=== PATIENT | male | born 1975 | race African-American/Black ===

== ENCOUNTER 2024-11-09 09:59 | Emergency (ER) | payer SELFPAY ==
[2024-11-09 10:00] VITALS: BP 139/90; PULSE 103; RESP 14; TEMP 36.1; O2SAT 99; BMI 32.8
--- NOTE | 2024-11-09 10:20 | EX.ED.VIS.PS ---
HPI HPI - Psych History of Present Illness Chief Complaint: Suicidal Informant: patient Narrative Narrative: Presents from nursing home reporting increasing suicidal ideation with voices in the head. History of schizoaffective disorder. Patient reports he was just discharged from psychiatric hospital in [place] 4 days ago he was hospitalized for 2 weeks. Review of his discharge papers admission 21 October discharge November 05. He was admitted for voices. States voices have not improved. He coordinated with a friend. Got a [employer] past he came here 2 days ago. He saw his friend he is currently at the nursing home. He states thoughts of hurting self by overdose. He is a diabetic. He is on insulin and metformin also notes psychiatric medicine. He reports no current alcohol use or any recreational drugs. Denies homicidal ideations. States the voices tells him to just do it. Clarification with patient was to hurt himself. He reports nontraumatic headache since yesterday.. no nausea or vomiting. Denies photophobia or phonophobia. Prior similar symptoms: Yes PFSH PFSH Medical History (Updated 11/09/24 @ 17:[address] Howard Lopez DO) Schizophrenia 23-polyvalent pneumococcal polysaccharide vaccine indication of diabetes in patient 6 to 64 years of age Home Medications ?Medication ?Instructions ?Recorded ?Last Taken ?Type insulin glargine 100 unit/mL (3 5 unit subcut DAILY 11/09/24 11/09/24 History mL) subcutaneous pen (Lantus Solostar U-100 Insulin) insulin glargine 100 unit/mL (3 14 unit subcut QHS 11/09/24 11/08/24 History mL) subcutaneous pen (Lantus Solostar U-100 Insulin) lumateperone 42 mg capsule 42 mg PO DAILY 11/09/24 11/08/24 History (Caplyta) metformin 1,000 mg tablet 1,000 mg PO BID 11/09/24 11/09/24 History Allergy/AdvReac Type Severity Reaction Status Date / Time Pork/Porcine Containing AdvReac Nausea/Vom/ Verified 11/09/24 10:01 Products Diarrhea Social History Smoking Status: Current every day smoker tobacco type: cigarettes ROS ROS ED Constitutional Constitutional ED: Denies chills, fever(s) or sweats ENT ENT ED: Denies sore throat Cardiovascular Cardiovascular: Denies chest pain, leg edema, palpitations or racing heartbeat Respiratory/Chest Respiratory/Chest: Denies cough, dyspnea or dyspnea on exertion Gastrointestinal Gastrointestinal: Denies abdominal pain, diarrhea, nausea or vomiting Genitourinary Genitourinary ED: Denies dysuria, hematuria or urinary frequency Musculoskeletal Musculoskeletal: Denies back pain, extremity pain or neck pain Integumentary Denies rash or wounds Neurologic Neurologic: Reports headache(s); Denies paresthesias or weakness Psychiatric Psychiatric: Reports suicidal ideation, suicidal thoughts and other Details: Auditory hallucinations. EXAM Physical Exam Const Vital Signs: 11/09/24 10:00 Temperature 97 F L Temperature Source Temporal Pulse Rate 103 H Respiratory Rate 14 Blood Pressure 139/90 H Blood Pressure Mean 106 Pulse Ox 99 Oxygen Delivery Method Room Air Positive well nourished and well developed General Appearance ED: well developed and NAD HEENT Reports moist mucous membranes normocephalic and atraumatic Eyes General Eye ED: Yes normal appearance of both eyes Neck full ROM Neck Narrative: No meningismus Chest Wall Chest: Negative for tenderness Resp normal respiratory effort and normal air movement Effort and Inspection: symmetric chest movement; Negative for respiratory distress Cardio regular rate, regular rhythm and no murmurs Peripheral Pulses: pulses 2+ throughout GI normal to inspection, nondistended, normoactive bowel sounds and non-tender Palpation: Negative for guarding or rebound tenderness present Extremity normal to inspection General Extremety ED: Negative for edema or tenderness General Extremity: Negative for edema Neuro oriented x3, CN's II-XII intact bilaterally and no sensory deficits noted Sensorium / Orientation: awake and alert Psych Psych Narrative: Flat affect, admits to suicidal ideation. Admits to auditory hallucinations. Skin no rashes or lesions noted and no wounds MDM MDM MDM Narrative Medical decision making narrative: Interventions / MDM: Differential diagnosis: Schizoaffective disorder, suicidal ideation, auditory hallucinations, headache, diabetes Diagnosis considered but do not suspect: No clinical meningitis.Diabetic ketoacidosis however normal anion gap. My EKG interpretation: N/A Imaging independently reviewed and interpreted by myself: N/A External documents reviewed: N/A Test considered but not ordered:N/A ED course: Primary complaint is increasing auditory loose nations with suicidal thoughts. History of schizoaffective disorder. Will obtain medical clearance labs. Tylenol ordered for his headache. I discussed with licensed reactor operator with patient being out of state. They will evaluate the patient. 1145: Alcohol negative toxicology presumptive THC. Labs hyperglycemia glucose 403 normal gap therefore no concerns for DKA. He took his metformin today on his paperwork he is on Lantus in the morning at night. He was previously on sliding scale from facility. Will plan on 8 units of short acting insulin, meal tray is coming. Will dose prior to his meal tray. Medically cleared. Will await crisis evaluation to help with disposition. 1250: Crisis did evaluate the patient is agreed he will likely require hospitalization. Currently patient unable to provide his so security number. We will reach out to [facility] in [place] to try to obtain additional information on the patient. 1730: Patient glucose rechecked after insulin and eating meal currently 303. Awaiting placement by crisis. Re-evaluation: stable Disposition discussed with patient/family/significant other: Case discussed with consulting clinician: shore worker, wiley This note was generated with Wiper dictation software. It may contain incorrect words, spelling, and punctuation that were not noted in checking the note before signing. Lab Data Attestation: I reviewed the patient's lab results. Labs: Laboratory Results - last 24 hr 11/09/24 10:36 WBC 7.5 RBC 4.57 L Hgb 12.1 L Hct 37.3 L MCV 81.6 MCH 26.5 L MCHC 32.4 RDW Std Deviation 41.4 RDW Coeff of Richard 14.2 Plt Count 357 MPV 8.9 Immature Gran % (Auto) 0.300 Neut % (Auto) 62.5 Lymph % (Auto) 29.4 [place] % (Auto) 6.4 Eos % (Auto) 1.1 Baso % (Auto) 0.3 Absolute Neuts (auto) 4.7 Absolute Lymphs (auto) 2.20 Nucleated RBC % 0 Sodium 136 Potassium 3.7 Chloride 101 Carbon Dioxide 21.2 Anion Gap 14 BUN 9 Creatinine 1.18 Estim Creat Clear Calc 95.93 Est GFR (MDRD) Non-Af 75 BUN/Creatinine Ratio 7.7 L Glucose 403 H Calcium 9.3 Urine Opiates Screen NEGATIVE U Buprenorphine Qual NEGATIVE Ur Oxycodone Screen NEGATIVE Urine Methadone Screen NEGATIVE Urine Fentanyl Screen NEGATIVE Ur Barbiturates Screen NEGATIVE Ur Phencyclidine Scrn NEGATIVE Ur Amphetamines Screen NEGATIVE U Benzodiazepines Scrn NEGATIVE Urine Cocaine Screen NEGATIVE U Cannabinoids Screen PRESUMPTIVE POSITIVE Ethyl Alcohol < 10.1 Discharge Plan Triage Chief Complaint: Suicidal Other Complaint: Headache ED Provider: Howard Lopez Dx/Rx/DC Orders Clinical Impression: Suicidal ideation, Schizoaffective disorder, Hyperglycemia due to diabetes mellitus Prescriptions: No Action insulin glargine [Lantus Solostar U-100 Insulin] 100 unit/mL (3 mL) insulin pen 5 unit subcut DAILY Rx Instructions: 5U IN THE MORNING AND 14U HS insulin glargine [Lantus Solostar U-100 Insulin] 100 unit/mL (3 mL) insulin pen 14 unit subcut QHS Rx Instructions: 5U AM AND 14U HS metformin 1,000 mg tablet 1,000 mg PO BID Caplyta 42 mg capsule 42 mg PO DAILY Primary Care Provider: Care Physician,No Primary Referrals: Care Physician,No Primary [Primary Care Provider] - Print Language: Mozambican Disposition Disposition: Psychiatric Hospital or Unit
[2024-11-09] MEDS: Acetaminophen 325 MG Tablet 650 MG PO (10:27)
[2024-11-09 10:52] LABS: Absolute Neutrophil Count 4.7 X10^3/uL (2.0-7.7); Basophil# 0.02 X10^3/uL; Basophil% 0.3 % (0-1); Eosinophil# 0.08 X10^3/uL; Eosinophils% 1.1 % (0-5); Hematocrit 37.3 % (40-54); Hemoglobin 12.1 g/dL (13.0-16.5); Lymphocyte % 29.4 % (19-41); Mean Corp Hgb Conc 32.4 g/dL (32-36); Mean Corpuscular Hgb 26.5 pg (27.0-32.0); Mean Corpuscular Volume 81.6 fL (80-94); Mean Platelet Vol. 8.9 fl (6.2-12.0); Monocyte# 0.48 X10^3/uL; Monocyte% 6.4 % (0-10); NRBC Flagged by Analyzer 0 % (0-5); Neutrophil # 4.69 X10^3/uL (2.7-7.7); Neutrophil % 62.5 % (47-70); Platelet Count 357 K/mm3 (150-450); RBC Distribution Width CV 14.2 % (11.6-14.6); RBC Distribution Width SD 41.4 fl (35.1-43.9); Red Blood Count 4.57 M/mm3 (4.6-6.2); White Blood Count 7.5 K/mm3 (4.4-11.0)
[2024-11-09 11:21] LABS: Amphetamine Urine NEGATIVE (<1000 ng/mL); Barbiturate Urine NEGATIVE (< 200 ng/mL); Benzodiazepine Urine NEGATIVE (< 200 ng/mL); Buprenorphine Urine NEGATIVE (< 200 ng/mL); Cocaine Urine NEGATIVE (< 300 ng/mL); Fentanyl, Urine NEGATIVE; Methadone Urine NEGATIVE (< 300 ng/mL); Opiates Urine NEGATIVE (< 300 ng/mL); Oxycodone, Urine NEGATIVE (< 100 ng/mL); PCP Urine NEGATIVE (< 25 ng/mL); THC Urine PRESUMPTIVE POSITIVE (< 50 ng/mL)
--- NOTE | 2024-11-09 11:21 | CM.ED ---
Social Work SW called crisis to meet with patient as patient came to [place] from [place] 3 days ago. Patients insurance is out of state. Crisis updated that patient was recently released from an inpatient psychiatric facility in [place] and took a [employer] hound bus to [place]. Patient states he was supposed to stay with a friend but that got awkward so patient has been has been staying at [facility]. Patient reports to command auditory hallucinations and suicidal ideations. Neyda Perez, LIQUID SUGAR MELTER, SHADOWGRAPH SCALE OPERATOR
[2024-11-09 11:22] LABS: Anion Gap 14 (5-15); BUN 9 mg/dL (4-19); BUN/Creat Ratio 7.7 RATIO (10-20); Calcium,Total 9.3 mg/dL (7.6-11.0); Carbon Dioxide 21.2 mmol/L (21.0-32.0); Chloride 101 mmol/L (98-108); Creatinine, Serum 1.18 mg/dL (0.70-1.20); EST Glomerular Filtration Rate 75 (>60); Estimated Creatinine Clearance 95.93 ml/min (50-250); Glucose 403 mg/dL (70-99); Potassium 3.7 mmol/L (3.3-5.1); Sodium Level 136 mmol/L (133-145)
[2024-11-09 11:24] LABS: Alcohol, Blood (Medical)-Serum < 10.1 mg/dL (<=10.0)
[2024-11-09] MEDS: Insulin Lispro 100 UNIT/ML INSULN.PEN 8 UNIT SC (12:26)
[2024-11-09 17:49] LABS: Bedside Glucose 303 mg/dL (74-106)
[2024-11-09 18:29] VITALS: BP 145/65; PULSE 85; RESP 16; O2SAT 98
--- NOTE | 2024-11-09 19:15 | PCA ---
[facility] CALLED AND REQUESTED AN EKG FOR PT. RN NOTIFIED.
--- NOTE | 2024-11-09 19:16 | EKG12_ITS ---
Test Reason : [facility] [place] Pressure : */* mmHG Vent. Rate : 71 BPM Atrial Rate : 71 BPM P-R Int : 164 ms QRS Dur : 88 ms QT Int : 370 ms P-R-T Axes : 29 64 57 degrees QTcB Int : 402 ms Normal sinus rhythm Normal ECG Confirmed by Daniel Eddy ([id number]), script editor CAREN BALDERAS ([id number]) on 11/11/2024 6:56:35 AM Referred By: Confirmed By: Daniel Eddy
[2024-11-10 02:00] VITALS: BP 125/87; PULSE 69; RESP 15; O2SAT 99
[2024-11-10 08:47] LABS: Bedside Glucose 233 mg/dL (74-106)
[2024-11-10 10:29] VITALS: BP 132/82; PULSE 72; RESP 16; TEMP 36.5; O2SAT 97
--- NOTE | 2024-11-10 11:20 | CM.ED ---
Social Work SW contacted Crisis and spoke with Roger to ask about an update on patients placement. Roger stated that patient is still under review at [facility] but if Crisis did not hear from them soon they would call for an update. Neyda Perez, JUVENILE COURT LIAISON, PACKAGE MAKER
[2024-11-10 12:46] LABS: Bedside Glucose 317 mg/dL (74-106)
--- NOTE | 2024-11-10 14:28 | CM.ED ---
Social Work SW contacted crisis who stated the last update from [facility] was that patient was still under review and patient will likely not admit until at least tomorrow. Neyda Perez, BRAND COORDINATOR, WASTEWATER SUPERINTENDENT
[2024-11-10 15:44] LABS: Bedside Glucose 388 mg/dL (74-106)
[2024-11-10] MEDS: Insulin Lispro 100 UNIT/ML INSULN.PEN 10 UNIT SC (16:17)
[2024-11-10 18:00] VITALS: BP 143/89; PULSE 73; RESP 18; O2SAT 98
[2024-11-10] MEDS: Insulin Glargine-YFGN 100 UNIT/ML Pen 14 UNIT SC (21:11)
[2024-11-10] MEDS: Acetaminophen 325 MG Tablet 650 MG PO (21:11)
[2024-11-11 02:00] VITALS: BP 126/76; PULSE 63; RESP 16; TEMP 36.6; O2SAT 100
--- NOTE | 2024-11-11 07:31 | PCA ---
[facility] CALL[facility] @ 0730 AND [facility] ACCEPTED THE PATIENT. THEY WILL CALL WITH A BED UPDATE AND RECENT SET OF VITALS SOON.
[2024-11-11 09:20] VITALS: BP 120/78; PULSE 72; RESP 16; O2SAT 100
[2024-11-11 09:34] VITALS: BP 120/78; PULSE 72; RESP 16; TEMP 37; O2SAT 100
== END 2024-11-11 09:35 ==
PROVIDERS: Emergency Provider Emergency Medicine; Visit Provider Emergency Medicine
DX: F25.9 Schizoaffective disorder, unspecified (principal); E11.65 Type 2 diabetes mellitus with hyperglycemia; Z79.4 Long term (current) use of insulin; R45.851 Suicidal ideations; R51.9 Headache, unspecified; F17.210 Nicotine dependence, cigarettes, uncomplicated; Z79.84 Long term (current) use of oral hypoglycemic drugs; Z79.899 Other long term (current) drug therapy
CPT/HCPCS: 80048; 80307; 82077; 82962; 85025; 93005; 99285

== ENCOUNTER 2025-03-01 20:05 | Emergency (ER) | payer MEDICAID, SELFPAY ==
[2025-03-01 20:05] VITALS: BP 131/85; PULSE 81; RESP 16; TEMP 36.9; O2SAT 99; BMI 34.4
--- NOTE | 2025-03-01 20:45 | EX.ED.VIS.PS ---
HPI HPI - Psych History of Present Illness Chief Complaint: Suicidal Narrative Narrative: 50-year-old male past medical history of diabetes presents with increasing problems with depression and anxiety, as well as increased suicidal ideation. He relates history that he was seen at another hospital and received a shot of Vivitrol about 2 weeks ago. After about a week, he was discharged from the psychiatric facility. Since then, he has been having increasing thoughts of suicide. Additionally, he states that he has a plan on committing suicide, and the fact that he would take a bunch of pills. He states he is not currently on medication for depression and anxiety and does not see a psychiatrist or a counselor. He denies any abdominal pain, nausea or vomiting, or any other somatic symptoms. He states he told the friend that he wanted to commit suicide this evening who brought him to the emergency department. [facility] Medical History Schizophrenia 23-polyvalent pneumococcal polysaccharide vaccine indication of diabetes in patient 6 to 64 years of age Home Medications ?Medication ?Instructions ?Recorded ?Last Taken ?Type insulin glargine 100 unit/mL (3 5 unit subcut DAILY 11/09/24 11/09/24 History mL) subcutaneous pen (Lantus Solostar U-100 Insulin) insulin glargine 100 unit/mL (3 14 unit subcut QHS 11/09/24 11/08/24 History mL) subcutaneous pen (Lantus Solostar U-100 Insulin) lumateperone 42 mg capsule 42 mg PO DAILY 11/09/24 11/08/24 History (Caplyta) metformin 1,000 mg tablet 1,000 mg PO BID 11/09/24 11/09/24 History Allergy/AdvReac Type Severity Reaction Status Date / Time Pork/Porcine Containing AdvReac Nausea/Vom/ Verified 03/01/25 20:05 Products Diarrhea Social History Smoking Status: Heavy Smoker (>10/day) ROS ROS ED ROS Narrative Review of systems positive for suicidal ideation with plan to take pills. No fevers or chills, no nausea or vomiting, no other symptoms. EXAM Physical Exam Narrative Exam Narrative: Afebrile. Vital signs noted. Nontoxic-appearing. Cardiovascular examination feels regular rate and rhythm. Lungs are clear to auscultation bilaterally. The abdomen is soft and nontender with positive bowel sounds. Neurological examination nonfocal, nonlateralizing. Flat affect. 1 to a few word answers. Semiavoidant behavior. No internal stimulation or active hallucinations. Const Vital Signs: 03/01/25 20:05 03/01/25 21:07 Temperature 98.4 F Temperature Source Oral Pulse Rate 81 79 Respiratory Rate 16 16 Blood Pressure 131/85 H Blood Pressure Mean 100 Pulse Ox 99 98 Oxygen Delivery Method Room Air Room Air MDM MDM MDM Narrative Medical decision making narrative: I reviewed the patient's prior records. Last ED visit showed that he was here at the beginning of October a few months ago and was transferred to a psychiatric facility. He has past psychiatric history of schizophrenia. Medical clearance labs will be obtained for evaluation by the crisis counselor. I reviewed his laboratory work and he has normal white count of 8.1, hemoglobin 11.1, stable, platelet count normal at 333. CMP is significant for glucose of 179 with a normal anion gap of 10, normal BUN and creatinine, normal sodium and potassium. LFTs are grossly unremarkable. Ethyl alcohol is negative. His urine for drugs of abuse is still pending. Once this is returned, I do feel that he would be medically cleared. At this point in time, patient will be signed out to the oncoming physician, Dr. Mark Davila, to make final disposition on this patient after crisis counselor evaluation for suicidal ideation with plan to take pills. Patient is in stable condition. History & Record Review Discussion w/independent historian: Patient Additional record(s) reviewed:: Prior ED visit Lab Data Attestation: I reviewed the patient's lab results. Labs: Laboratory Results - last 24 hr 03/01/25 20:38 WBC 8.1 RBC 4.26 L Hgb 11.1 L Hct 34.1 L MCV 80.0 MCH 26.1 L MCHC 32.6 RDW Std Deviation 46.5 H RDW Coeff of Richard 16.3 H Plt Count 333 MPV 9.0 Immature Gran % (Auto) 0.400 Neut % (Auto) 53.9 Lymph % (Auto) 37.3 [place] % (Auto) 6.5 Eos % (Auto) 1.5 Baso % (Auto) 0.4 Absolute Neuts (auto) 4.4 Absolute Lymphs (auto) 3.03 Nucleated RBC % 0 Sodium 140 Potassium 3.4 Chloride 106 Carbon Dioxide 24.2 Anion Gap 10 BUN 11 Creatinine 0.97 Estim Creat Clear Calc 118.15 Est GFR (MDRD) Non-Af 94 BUN/Creatinine Ratio 10.8 Glucose 179 H Calcium 8.8 Total Bilirubin 0.28 AST 27 ALT 34 Alkaline Phosphatase 72 Total Protein 6.3 Albumin 3.6 Globulin 2.7 Albumin/Globulin Ratio 1.3 Ethyl Alcohol < 10.1 Discharge Plan Triage Chief Complaint: Suicidal ED Provider: Amaury Ybarra Dx/Rx/DC Orders Clinical Impression: Depression, Suicidal ideation, Schizophrenia Prescriptions: No Action insulin glargine [Lantus Solostar U-100 Insulin] 100 unit/mL (3 mL) insulin pen 5 unit subcut DAILY Rx Instructions: 5U IN THE MORNING AND 14U HS insulin glargine [Lantus Solostar U-100 Insulin] 100 unit/mL (3 mL) insulin pen 14 unit subcut QHS Rx Instructions: 5U AM AND 14U HS metformin 1,000 mg tablet 1,000 mg PO BID Caplyta 42 mg capsule 42 mg PO DAILY Primary Care Provider: Care Physician,No Primary Referrals: Care Physician,No Primary [Primary Care Provider, Medical] Print Language: Armenian
[2025-03-01 21:07] VITALS: PULSE 79; RESP 16; O2SAT 98
--- NOTE | 2025-03-01 21:07 | ED.RN ---
Patient prompted for a urine sample. Patient states he cannot urinate at this time.
[2025-03-01 21:12] LABS: Hematocrit 34.1 % (40-54); Hemoglobin 11.1 g/dL (13.0-16.5); Immature Granulocytes Count 0.030 X10^3/uL (0.0-0.0); Mean Corp Hgb Conc 32.6 g/dL (32-36); Mean Corpuscular Volume 80.0 fL (80-94); Mean Platelet Vol. 9.0 fl (6.2-12.0); NRBC Flagged by Analyzer 0 % (0-5); Platelet Count 333 K/mm3 (150-450); RBC Distribution Width CV 16.3 % (11.6-14.6); RBC Distribution Width SD 46.5 fl (35.1-43.9); Red Blood Count 4.26 M/mm3 (4.6-6.2); White Blood Count 8.1 K/mm3 (4.4-11.0)
[2025-03-01 21:30] LABS: AST(SGOT) 27 U/L (<=37); Alanine Aminotransfer ALT/SGPT 34 U/L (<=46); Albumin, Serum 3.6 g/dL (3.5-5.0); Alkaline Phosphatase 72 U/L (40-129); Anion Gap 10 (5-15); BUN 11 mg/dL (4-19); BUN/Creat Ratio 10.8 RATIO (10-20); Calcium,Total 8.8 mg/dL (7.6-11.0); Carbon Dioxide 24.2 mmol/L (21.0-32.0); Chloride 106 mmol/L (98-108); Estimated Creatinine Clearance 118.15 ml/min (50-250); Globulin 2.7 g/dL (2.2-4.2); Glucose 179 mg/dL (70-99); Potassium 3.4 mmol/L (3.3-5.1)
[2025-03-01 21:52] LABS: Alcohol, Blood (Medical)-Serum < 10.1 mg/dL (<=10.0)
[2025-03-01 23:17] LABS: Barbiturate Urine NEGATIVE (< 200 ng/mL); Benzodiazepine Urine NEGATIVE (< 200 ng/mL); PCP Urine NEGATIVE (< 25 ng/mL); THC Urine PRESUMPTIVE POSITIVE (< 50 ng/mL)
--- NOTE | 2025-03-01 23:31 | PCA ---
[facility] CALLED, CHART FAXED.
--- NOTE | 2025-03-02 00:47 | PCA ---
PT TO BE PLACED
--- NOTE | 2025-03-02 02:21 | PCA ---
PT ACCEPTED [facility] [address] [address] [phone] LOCAL TRANSPORT ARRANGED
[2025-03-02 04:34] VITALS: BP 134/80; PULSE 74; RESP 18; TEMP 36.7; O2SAT 98
[2025-03-02 05:07] VITALS: PULSE 75
== END 2025-03-02 05:46 ==
PROVIDERS: Emergency Provider Emergency Medicine; Visit Provider Emergency Medicine
DX: R45.851 Suicidal ideations (principal); F20.9 Schizophrenia, unspecified; E11.9 Type 2 diabetes mellitus without complications; Z79.4 Long term (current) use of insulin; F41.9 Anxiety disorder, unspecified; F32.A Depression, unspecified; F17.210 Nicotine dependence, cigarettes, uncomplicated
CPT/HCPCS: 80053; 80307; 82077; 82962; 85025; 99284